=== PATIENT | female | born 2000 | race Caucasian/White ===

== ENCOUNTER 2022-04-13 20:59 | Emergency (ER) | payer MEDICAID ==
[2022-04-13 21:33] LABS: URINE APPEARANCE HAZY; URINE BILIRUBIN NEGATIVE (NEGATIVE); URINE BLOOD NEGATIVE (NEGATIVE); URINE COLOR YELLOW; URINE GLUCOSE NEGATIVE (NEGATIVE); URINE KETONE NEGATIVE (NEGATIVE); URINE LEUKOCYTE ESTERASE 1+ (NEGATIVE); URINE NITRATE NEGATIVE (NEGATIVE); URINE PROTEIN(semi-quant) NEGATIVE (NEGATIVE); URINE UROBILINOGEN NORMAL (NORMAL)
[2022-04-13] MEDS ORDERED: PRENATAL MULTI1 EAC4 PO (21:51)
[2022-04-13 22:02] VITALS: BP 130/52
== END 2022-04-13 22:01 | disposition home or self-care (01) ==
LOC: ED 20:59
PROVIDERS: Physician Assistant
DX: O26.892 Other specified pregnancy related conditions, second trimester (principal); M54.50 Low back pain, unspecified; Z3A.00 Weeks of gestation of pregnancy not specified; Z87.42 Personal history of other diseases of the female genital tract; Z28.310 Unvaccinated for COVID-19

== ENCOUNTER 2022-05-05 15:12 | Emergency (ER) | payer MEDICAID ==
[~2022-05-05 15:12] MED LIST: PRENATAL MULTI1 EAC4 PO
[2022-05-05 15:43] LABS: BASO # 0.02 K/mm3 (0.02-0.10); EOS # 0.03 K/mm3 (0.04-0.40); EOS % 0.3 % (1.0-5.0); LYMPH# 1.19 K/mm3 (1.50-4.00); MEAN CELL VOLUME 93 fl (78-100); MEAN CORPUSCULAR HEMOGLOBIN 32 pg (27-31); MEAN CORPUSCULAR HGB CONC 34 g/dL (33-37); MEAN PLATELET VOLUME 9.8 fl (7.4-10.4); MONO # 0.39 K/mm3 (0.20-0.80); NEU # 7.42 K/mm3 (1.40-6.50); PLATELET COUNT 407 K/mm3 (130-400); RED BLOOD COUNT 4.11 M/mm3 (4.10-5.30); RED CELL DISTRIBUTION WIDTH 12.3 % (11.5-14.5); WHITE BLOOD COUNT 9.1 K/mm3 (4.8-10.8)
[2022-05-05 16:12] LABS: ALBUMIN 4.5 g/dL (3.5-5.0)
[2022-05-05 16:13] LABS: POTASSIUM 3.6 mmol/L (3.5-5.1); SODIUM 139 mmol/L (136-145)
[2022-05-05 16:14] LABS: CALCIUM 9.7 mg/dL (8.3-10.5)
[2022-05-05 16:15] LABS: GLUCOSE 144 mg/dL (65-105)
[2022-05-05 16:16] LABS: CARBON DIOXIDE 20 mmol/L (22-29)
[2022-05-05 16:17] LABS: TOTAL BILIRUBIN 0.7 mg/dL (0.2-1.2)
[2022-05-05 16:20] LABS: AST-SGOT 17 U/L (5-34)
[2022-05-05 16:22] LABS: ACETAMINOPHEN 10 ug/mL; ALT/SGPT 12 U/L (0-55)
[2022-05-05 16:23] LABS: ALCOHOL IN-HOUSE < 10 mg/dL (<10); LIPASE 33 U/L (8-78)
[2022-05-05] MEDS ORDERED: CEPHALEXIN500 M1 PO (17:03)
[2022-05-05 17:07] VITALS: BP 97/47
== END 2022-05-05 17:11 | disposition home or self-care (01) ==
LOC: ED 15:12
PROVIDERS: Family Medicine
DX: O9A.219 Injury, poisoning and certain other consequences of external causes complicating pregnancy, unspecified trimester (principal); S71.111A Laceration without foreign body, right thigh, initial encounter; O23.40 Unspecified infection of urinary tract in pregnancy, unspecified trimester; O00.90 Unspecified ectopic pregnancy without intrauterine pregnancy; Z87.42 Personal history of other diseases of the female genital tract; Z28.310 Unvaccinated for COVID-19; Z3A.00 Weeks of gestation of pregnancy not specified; X78.9XXA Intentional self-harm by unspecified sharp object, initial encounter
CPT/HCPCS: J0696